=== PATIENT | male | born 1985 | race Caucasian/White ===

== ENCOUNTER → 2020-05-07 11:10 | Outpatient (BNVA) | payer OTHER, SELFPAY | PROVIDERS: Family Provider Family Medicine; PCP Urology; Visit Provider Emergency Medicine | DX: Z20.822 Contact with and (suspected) exposure to COVID-19 (principal) | CPT/HCPCS: 87635 ==

== ENCOUNTER → 2020-09-14 10:08 | Outpatient (BNVA) | payer BC, SELFPAY | PROVIDERS: Family Provider Family Medicine; PCP Urology; Visit Provider Nurse Practitioner Family | DX: Z20.822 Contact with and (suspected) exposure to COVID-19 (principal); J06.9 Acute upper respiratory infection, unspecified; Z11.52 Encounter for screening for COVID-19 | CPT/HCPCS: 87635 ==

== ENCOUNTER 2022-06-09 18:08 | Day surgery (SDC) | payer BC, SELFPAY ==
[2022-06-09] VITALS (12 sets, daily range): BP systolic 112–132; BP diastolic 67–89; PULSE 82–107; RESP 12–18; TEMP 36.1–36.7; O2SAT 94–100
--- NOTE | 2022-06-09 18:25 | XRR_ITS ---
PROCEDURE INFORMATION: Exam: XR Right Hand Exam date and time: 06/09/2022 6:30 PM Age: 37 years old Clinical indication: Injury or trauma; Other: Cut end of middle finger off with saw; Wound; Right; Injury details: Distal part of middle finger cut off with saw TECHNIQUE: Imaging protocol: Radiologic exam of the right hand. Views: 3 or more views. COMPARISON: No relevant prior studies available. FINDINGS: Bones/joints: Amputation changes of the tuft of the distal 3rd phalanx. Soft tissues: Amputation changes of the distal 2nd and 3rd digits. XR/XR hand RT min 3V* [id number] IMPRESSION: Amputation changes of the distal 2nd and 3rd digits which includes amputation of the tuft of the distal 3rd phalanx.
--- NOTE | 2022-06-09 18:37 | W.ED.WOUNDLC ---
HPI - Wound/Laceration General: Chief Complaint: Wound/Laceration Stated Complaint: right hand finger lac Time Seen by Provider: 06/09/22 18:25 Source: patient and family History of Present Illness: 37-year-old male who was running a table saw, and injured his second and third fingers on the right hand about 20 minutes prior to arrival. Distal amputation of the third finger. Laceration with nail loss to the second. He is in quite a bit of pain, and is passing out . Onset (ago): minute(s) Extremity Location: Right: hand Place: home Context: accidental Associated symptoms: Reports nausea, pain and syncope (Near syncope, vasovagal); Denies fever(s) Treatments prior to arrival: other Review of Systems Const: Denies: fever(s) Card: Reports: syncope (Near syncope, vasovagal) GI: Reports: nausea Psych: Reports: anxiety [facility] ED PFSH: Social History Smoking and tobacco status: never smoked Physical Exam Const: GENERAL APPEARANCE: cooperative, anxious and lethargic (Near syncopal) ORIENTATION/CONSCIOUSNESS: Yes lethargic (Near syncopal) HENMT: COMMON NORMALS: normocephalic HEAD & SCALP: normocephalic FACE & SINUS: normal facial exam Eye: COMMON NORMALS: Equal, round and reactive pupils present and EOMs intact bilaterally PUPIL: Yes Equal, round and reactive pupils present Chest: CHEST: Yes Symmetrical chest wall rise Resp: COMMON NORMALS: normal respiratory effort Cardio: COMMON NORMALS: regular rate and regular rhythm RATE: regular rate RHYTHM: regular rhythm Extremity: NARRATIVE EXTREMITY EXAM: Exam of the right hand reveals distal amputation to the third digit with nearly complete nail loss, and some bone loss. There is partial amputation of the distal tip of the second finger with some nail loss. Neuro: JAY JAY COMA SCALE: document GCS findings [place] coma scale eye opening: To sound Jay Jay coma scale verbal response: Orientated Jay Jay coma scale motor response: Obey commands Jay Jay coma scale total score: 14 SENSORIUM/ORIENTATION: Yes lethargic (Near syncopal) Course Vital Signs: Vital signs: Vital Signs Temperature 98.1 F 06/09/22 18:13 Pulse Rate 107 H 06/09/22 18:13 Respiratory Rate 16 06/09/22 19:23 Pulse Oximetry 100 06/09/22 19:23 Oxygen Delivery Me thod 06/09/22 18:13 MDM - Wound/Laceration Medical Decision Making Patient is a bit lethargic on exam, he is presyncopal from vasovagal reaction to his injury. He is given IV fluid, and pain medication with some improvement. The patient is not tolerating the pain related to his injury well at all. He is hyperventilating in the room. He is required 2 doses of pain medication. X-ray reveals bone loss of a portion of the tuft of the third distal phalanx, the second has no bone loss. Spoke with orthopedics. Since the patient is not tolerating the pain related to this well at all, and will likely not tolerate a digital block well without sedation, and because of the contamination risk regarding the surgery, he will go to the OR for washout and/or repair. Orthopedics is at the bedside now. Lab Data 06/09/22 18:39 06/09/22 18:39 Radiology Impressions Hand X-Ray 06/09/22 18:25 IMPRESSION: Amputation changes of the distal 2nd and 3rd digits which includes amputation of the tuft of the distal 3rd phalanx. Laboratory Results WBC 7.0 10^3/uL (4.0-10.0) 06/09/22 18:39 RBC 4.89 10^6/uL (4.1-5.3) 06/09/22 18:39 Hgb 14.8 g/dL (11.7-16.6) 06/09/22 18:39 Hct 43.2 % (42.0-52.0) 06/09/22 18: MCV 88.3 fl (80-94) 06/09/22 18:39 MCH 30.3 pg (28.0-34.0) 06/09/22 18: MCHC 34.3 g/dL (30.0-36.0) 06/09/22 18: RDW 12.1 % (12.1-15.1) 06/09/22 18:39 Plt Count 220 10^3/cmm (130-400) 06/09/22 18:39 MPV 11.6 fL (7.4-10.4) H 06/09/22 18: Neut % (Auto) 55.1 % 06/09/22 18:39 Lymph % (Auto) 33.0 % 06/09/22 18:39 [place] % (Auto) 10.3 % 06/09/22 18:39 Eos % (Auto) 0.7 % 06/09/22 18:39 Baso % (Auto) 0.6 % 06/09/22 18:39 Neut # (Auto) 3.87 10^3/uL (1.8-7.7) 06/09/22 18:39 Lymph # (Auto) 2.3 10^3/uL (0.8-4.8) 06/09/22 18:39 [place] # (Auto) 0.7 10^3/uL (0.2-0.9) 06/09/22 18:39 Eos # (Auto) 0.1 10^3/uL (0.0-0.8) 06/09/22 18:39 Baso # (Auto) 0.0 10^3/uL (0.0-0.1) 06/09/22 18:39 Nucleated RBC % (auto) 0 % 06/09/22 18:39 Nucleated RBCs # 0.0 /100WBC 06/09/22 18:39 Discharge Plan Discharge Patient Disposition: Placed in Observation Clinical Impression: Finger amputation, traumatic Condition: Stable Prescriptions: No Action fexofenadine-pseudoephedrine [Taya-D 12 Hour] 60-120 mg tablet extended release 12 hr 1 tab PO Q12H PRN amoxicillin-pot clavulanate 875-125 mg tablet 1 tab PO BID 5 Days Qty: 10 0RF dextromethorphan-guaifenesin 10-200 mg/5 mL liquid 7.5 ml PO Q8H PRN (Reason: cough) Qty: 118 0RF fluticasone propionate [Flonase Allergy Relief] 50 mcg/actuation spray,suspension 2 spray intranasal DAILY Qty: 16 0RF Rx Instructions: administer into each nostril Referrals: Carlos Macias MD [Primary Care Provider] - Gilberto Ponce DO [Family Provider] - Patient Instructions: Opioid Safety, Pain Management Coding Level of Care Code ED E M Assembl[facility] for [facility] Carmelina
[2022-06-09] MEDS: ondansetron 2 mg/ML SDV 2 mL 4 MG IVP (18:39)
[2022-06-09] MEDS: fentaNYL 50 mcg/mL INJ 2mL 100 MCG IVP (18:39)
[2022-06-09] MEDS: sodium chloride 0.9% 1,000 ML 999 ML IV (18:39)
[2022-06-09] MEDS: HYDROmorphone 1 mg/mL INJ 1 mL IVP ×2 (19:23→20:14)
[2022-06-09] MEDS: ceFAZolin 1,000 MG in sodium chloride 0.9% (plus) 50 ML 100 MG IV (19:37)
[2022-06-09 19:43] LABS: Basophils % 0.6 %; Eosinophils # 0.1 10^3/uL (0.0-0.8); Eosinophils % 0.7 %; Hematocrit 43.2 % (42.0-52.0); Hemoglobin 14.8 g/dL (11.7-16.6); Lymphocytes # 2.3 10^3/uL (0.8-4.8); Mean Corpuscular HGB Conc 34.3 g/dL (30.0-36.0); Mean Corpuscular Hemoglobin 30.3 pg (28.0-34.0); Mean Corpuscular Volume 88.3 fl (80-94); Mean Platelet Volume 11.6 fL (7.4-10.4); Monocytes # 0.7 10^3/uL (0.2-0.9); Monocytes % 10.3 %; Neutrophils # 3.87 10^3/uL (1.8-7.7); Neutrophils % 55.1 %; Nucleated Red Blood Cells % 0 %; Platelet Count 220 10^3/cmm (130-400); Red Blood Count 4.89 10^6/uL (4.1-5.3); Red Cell Distribution Width 12.1 % (12.1-15.1)
--- NOTE | 2022-06-09 19:54 | P.HP_ITS ---
Providers/Chief Complaint Admitting Physician: Reji Shultz DO Primary Care Provider: Carlos Macias MD Chief Complaint: right hand finger lac History of Present Illness Amari Robledo is a 37 year old male who sustained a table saw injury to the right index and right middle finger. Pronounced traumatic distal fingertip amputation through the mid substance of the distal phalanx of the right middle finger as well as the fingertip of the right index finger. Patient in significant pain on unable to tolerate any bedside procedures. Was going to attempt a simple bedside procedure however family as well as patient adamant unable to tolerate this as a result would recommend take back to the OR tonight for right index and right middle finger irrigation and debridement with revision amputation of the right middle finger. Patient's received antibiotics and tetanus in the emergency department. Reports last ate food 4 PM. On my assessment patient just received Dilaudid and is significantly lethargic and out of it for full history however as well as mother is at bedside and shares HPI. At this point time we will plan to proceed with OR this evening. Denies any fevers chills or chest pain does report syncope secondary to vasovagal as well as nausea and anxiety Review of Systems General: Reports: 10 or more systems reviewed and unremarkable except in HPI and below Medications/Allergies Home Medications Medication Instructions Recorded Confirmed Last Taken Type fluticasone propionate 50 2 spray intranasal DAILY #16 grams 02/12/22 02/14/22 Unknown Rx mcg/actuation nasal spray,suspension (Flonase Allergy Relief) amoxicillin 875 mg-potassium 1 tab PO BID 5 days #10 tabs 02/14/22 02/14/22 Unk nown Rx clavulanate 125 mg tablet dextromethorphan-guaifenesin 10 7.5 ml PO Q8H PRN cough #118 mL 02/14/22 02/14/22 Unknown Rx mg-200 mg/5 mL oral liquid fexofenadine 60 mg-pseudoephedrine 1 tab PO Q12H PRN 02/14/22 02/14/22 Unknown History ER 120 mg tablet,ext.release,12 hr (Taya-D 12 Hour) Allergies Allergy/AdvReac Type Severity Reaction Status Date / Time No Known Allergies Allergy Verified 02/14/22 09:18 PFSH Acute PFSH: Social History Smoking and tobacco status: never smoked Vitals/I&O/Wt Last Vital Signs Temp 98.1 F 06/09/22 18:13 Pulse 107 H 06/09/22 18:13 Resp 16 06/09/22 19:23 Pulse Ox 100 06/09/22 19:23 O2 Del Method 06/09/22 18:13 Weight last 48 hrs Weight 230 lb Physical Exam Narrative: Examination of the right hand demonstrate patient is able to flex and extend at the DIP joints of the index and middle finger. Traumatic fingertip amputation mid substance of the distal phalanx of the right middle finger with hematoma clot noted. No active bleeding noted. Exposed bone of the distal phalanx of the right middle finger. Fingertip laceration with no nailbed injury to the right index finger. Sensation intact to light touch distally. Brisk capillary refill less than 2 seconds. Data 06/09/22 18:39 06/09/22 18:39 Xray Ortho: My impression: X-rays of the right hand demonstrate traumatic soft tissue laceration and rotation of the fingertip of the right index finger with does not appear to have any bony involvement with traumatic amputation of the distal phalanx of the right middle finger. Radiologist's impression: XR/XR hand RT min 3V* [id number] IMPRESSION: Amputation changes of the distal 2nd and 3rd digits which includes amputation of the tuft of the distal 3rd phalanx. A&P Assessment and plan (1) Finger amputation, traumatic: Plan Patient presents to the emergency department tonight after tablesaw injury to the right index and middle finger. Patient received appropriate tetanus and antibiotics in the emergency department initial plan was for potential bedside procedure however family adamant and patient unable to tolerate this at bedside and as result through shared decision making with patient and family agreed to proceed with right middle finger irrigation and debridement revision amputation with likely healing by secondary intention as well as I&D of the right index finger. We will take patient to the OR this evening for this and plan would be to discharge from the PACU. Patient family understand agree with current plan. All questions answered. They understand the risk benefits complication alternatives surgical nonsurgical treatment options. Understanding risk of surgery they agreed to proceed. risks with surgery include but not limited to make a better make it worse nail deformity, shortening of finger, infection decreased range of motion. Understands risks good they agreed to proceed with surgical intervention all questions answered. Attestations Medical Necessity Statement*: Traumatic tablesaw injury right index and middle finger Coding Level of Care Code Acute Code for Chg Fwd Diagnoses Finger amputation, traumatic S68.119A Time Spent (min) 45
[2022-06-09 19:58] LABS: Alanine Aminotransferase 44 U/L (0-41); Albumin Level 4.2 g/dL (3.5-5.2); Alkaline Phosphatase 78 U/L (40-130); Anion Gap 16.5 (5-19); Aspartate Amino Transferase 24 U/L (0-40); Blood Urea Nitrogen 13 mg/dL (6-20); Calcium 9.1 mg/dL (8.5-10.5); Carbon Dioxide 23 mmol/L (22-29); Chloride 103 mmol/L (98-107); Globulin 3.1 g/dL (1.3-4.6); Glomerular Filtration Rate 74.9 mL/min (90-130); Glucose 120 mg/dL (65-115); Osmolality Calculated 289 mOsm/kg (285-295); Potassium 3.5 mmol/L (3.5-5.1); Sodium 139 mmol/L (136-145); Total Bilirubin 0.3 mg/dL (0.15-1.2); Total Protein 7.3 g/dL (6.6-8.7)
[2022-06-09] MEDS: tetanus-dipt-pertussis 0.5 mL SDV IM (20:02)
--- NOTE | 2022-06-09 20:40 | ANES.PREANE2 ---
Pre-Anesthetic Assessment Height/Weight: Height 2.01 m Weight 104.326 kg Temp Pulse Resp Pulse Ox O2 Del Method 98.1 F 107 H 18 100 06/09/22 18:13 06/09/22 18:13 06/09/22 20:14 06/09/22 19:23 06/09/22 18:13 Preop Diagnosis: Right index and middle finger traumatic amputation Operation Date: 06/09/22 20:35 Proposed Procedures p Incision & Drainage Finger(Not Applicable) - Reji Shultz DO Familial anesthetic complications: None Last intake: Cheeseburger at approximately 4 pm, will be unable to do MAC or GETA. Patient's family made aware that patient will be awake for procedure Social No alcohol and No tobacco Exam alert, oriented x 3, clear to auscultation bilaterally and regular rate & rhythm Airway Mallampati: Class III Dentition: full Anesthetic Plan ASA status: 1 Other: digital block + IV analgesia Risk of > 500 ml blood loss (7ml/kg in children): No Medications/Allergies Home Medications Medication Instructions Recorded Confirmed Last Taken Type fluticasone propionate 50 2 spray intranasal DAILY #16 grams 02/12/22 02/14/22 Unknown Rx mcg/actuation nasal spray,suspension (Flonase Allergy Relief) amoxicillin 875 mg-potassium 1 tab PO BID 5 days #10 tabs 02/14/22 02/14/22 Unknown Rx clavulanate 125 mg tablet dextromethorphan-guaifenesin 10 7.5 ml PO Q8H PRN cough #118 mL 02/14/22 02/14/22 Unknown Rx mg-200 mg/5 mL oral liquid fexofenadine 60 mg-pseudoephedrine 1 tab PO Q12H PRN 02/14/22 02/14/22 Unknown History ER 120 mg tablet,ext.release,12 hr (Taya-D 12 Hour) Allergies Allergy/AdvReac Type Severity Reaction Status Date / Time No Known Allergies Allergy Verified 02/14/22 09:18 COUNTS INCLUDE 234 BEDS AT THE [facility] Anesthesia Social History Smoking and tobacco status: never smoked Data Anesthesia 06/09/22 18:39 06/09/22 18:39 Short CBC 06/09/22 Range/Units 18:39 WBC 7.0 (4.0-10.0) 10^3/uL Hgb 14.8 (11.7-16.6) g/dL Hct 43.2 (42.0-52.0) % MCV 88.3 (80-94) fl Plt Count 220 (130-400) 10^3/cmm Neut % (Auto) 55.1 % Neut # (Auto) 3.87 (1.8-7.7) 10^3/uL BMP 06/09/22 18:39 Sodium 139 Potassium 3.5 Chloride 103 Carbon Dioxide 23 BUN 13 Creatinine 1.1 Glucose 120 H Calcium 9.1 Liver Function 06/09/22 Range/Units 18:39 Total Bilirubin 0.3 (0.15-1.2) mg/dL AST 24 (0-40) U/L ALT 44 H (0-41) U/L Alkaline Phosphatase 78 (40-130) U/L Albumin 4.2 (3.5-5.2) g/dL Cardiac Studies: No Data to Display
[2022-06-09] MEDS: ceFAZolin 1,000 mg SDV 1000 MG IVP (21:12)
[2022-06-09] MEDS: lidocaine 1% INJ 10 mL (per mL) 24 ML INJECTION (21:15)
[2022-06-09] MEDS: neomycin-poly-bacitracin oint 28 gm 1 APPLIC TOPICAL (21:55)
--- NOTE | 2022-06-09 22:06 | PM.OP2 ---
Brief Operative Note Date of procedure: 06/09/22 Pre-op diagnosis: Right index finger laceration, right middle finger traumatic amputation (ta Post-op diagnosis: same (Right index finger nailbed laceration, right middle finger traumatic amputation) Procedure Done: Right index finger irrigation and debridement skin and subcutaneous tissue Right index finger nail plate removal and nailbed repair Right middle finger irrigation and debridement skin, subcutaneous tissue and bone Right middle finger nail plate removal and nailbed repair Right middle finger revision amputation with healing by secondary intention Surgeon: Reji Shultz Estimated blood loss (mL): 5 Complications: None Post-op Plan: Patient taken to PACU in stable condition recovering well. Pain controlled. Will receive appropriate discharge instructions as well as pain medication and post surgical antibiotics for infection prophylaxis. Patient will follow-up with me in the office in 2 weeks. Any questions or concerns and contact the office. Condition: stable Disposition: other (Discharge home) Coding Level of Care Code Acute Code for Ria Fwabby
--- NOTE | 2022-06-09 22:07 | P.PCN_ITS ---
PACU note Narrative: Patient taken to PACU in stable condition recovering well pain controlled. Dressings on in place clean dry and intact. Prior to dressing application fingertips are warm well-perfused brisk capillary refill less than 2 seconds. Decreased sensation to the index and middle finger secondary to digita l block. Exam: awake Disposition: discharged
--- NOTE | 2022-06-09 22:07 | P.OP_ITS ---
Operative Report Date of procedure: June 09, 2022 Pre-op diagnosis: Preop Diagnosis Right index and middle finger traumatic amputation Post-op diagnosis: Right index finger laceration, right middle finger traumatic amputation Procedure done: Right index finger irrigation and debridement skin and subcutaneous tissue Right index finger nail plate removal and nailbed repair Right middle finger irrigation and debridement skin, subcutaneous tissue and bone Right middle finger nail plate removal and nailbed repair Right middle finger revision amputation with healing by secondary intention Surgeon: Reji Shultz, DO Estimated blood loss: 5 mL Right middle finger turnicot?27 minutes Right index finger turnicot 14 minutes IV fluids: 700 mL Complications: None Findings: See operative report narrative Brief History: Patient is a 37-year-old male who presented the emergency department after tablesaw injury to the right index and middle finger found to have a laceration of the fingertip with possible nailbed injury as well as traumatic amputation of the right middle finger through the distal phalanx. Was seen evaluated the emergency department we talked about treatment options far as nonoperative and operative intervention ultimately this point time given open injury as well as inability to tolerate bedside would recommend formal OR for right index finger irrigation and debridement, right middle finger irrigation debridement and revision amputation. Patient family understand agree with current plan. All questions answered. We detailed out the risk benefits complications alternatives with the procedure understanding risk of surgery and agreed to proceed. All questions answered. Procedure: Patient presented to the preoperative area consent was reviewed and signed with patient. Correct extremity/digits were then marked. Patient seen evaluated by anesthesia plan was for local anesthetic with supplement of pain medication and anesthetic monitoring as patient did have a meal at 4 PM and anesthesia expressed concerns for possible aspiration of performed general anesthetic. Once cleared for surgery patient was taken back to the operative suite. Patient was then transported on the OR table all bony prominences well-padded patient properly secured to bed. Armboard was applied to the right arm. Patient then received appropriate pain medication prior to local anesthetic. Under sterile aseptic technique digital block was performed of the right index and middle finger. Patient tolerated this without any issues. Once appropriately anesthe tized the right hand was then prepped and draped in standard orthopedic fashion utilizing Betadine scrub brush. This point time patient received appropriate preoperative antibiotics. Final timeout performed. Attention was first turned towards the right middle finger a turnicot was then placed to the right middle finger. Then under loupe magnification thoroughly inspected the right middle finger. Patient was found to have traumatic amputation through the distal phalanx as well as violation and complete removal of 60 to 75% of the nail plate. This point time I thoroughly inspected the woun d bed and this was debrided to its entirety of skin and subcutaneous tissue and bone. I then utilized a rongeur to perform a revision amputation to take the bone underneath the soft tissue envelope to allow for secondary intention healing. This point time the digital vascular bundles were identified and then coagulated with electrocautery. Next I made small incisions in the eponychial fold and inspected the residual nail sterile matrix and germinal matrix the germinal matrix was intact however there was 2 lacerations into the residual sterile matrix. I then utilized 5-0 chromic suture and performed a nailbed repair. Next I placed a finger turnicot to the right index finger and then subsequently performed a right index finger irrigation and debridement. Debridement of skin and subcutaneous tissue was performed. Patient laceration did extend into the nail plate. In order for thorough evaluation of the nailbed I then subsequently placed a [place] and performed a nail plate removal. I was then able to inspect the nailbed to its entirety no damage to the nail matrix was noted however there was laceration into the sterile matrix and I subsequently used a 5-0 chromic suture in standard interrupted fashion and performed a nailbed repair to the index finger. This subsequently completed work on both the fingers I then utilized cystoscopy tubing and 3 L of normal saline to thoroughly irrigate the index and middle finger. I then subsequently removed the tourniquets to the right middle finger and right index finger. Hemostasis was satisfactory. The wound beds were then dressed with triple antibiotic bacitracin ointment as well as Xeroform was placed underneath the eponychial fold to prevent scarring for both the index and middle finger. I then covered the fingertips with 4 x 4's and Polo wrap. Curlex and Bill wrap were then applied. Patient tolerated procedure without any complications. Patient was taken back to PACU in stable condition. Disposition: Patient taken PACU in stable condition recovering well pain controlled. Dressing on in place clean dry and intact receive appropriate discharge instruction as well as pain medication postoperatively as well as p.o. antibiotics outpatient for infection prophylaxis. Patient will follow-up with me in the office in 2 weeks. Patient family understand agree with current plan. All questions answered.
[2022-06-09] MEDS: HYDROcodone-acetaminophen 5-325 mg Tablet 2 TAB PO (22:45)
--- NOTE | 2022-06-09 22:58 | SUR.PHASEII ---
Per Dr Engel discharge instructions, pt was given 2 Hydrocodone upon discharge for pain and 2 hydrocodone were sent home with pt as pharmacy will not open until tomorrow AM. Pt was instructed to not take medications on an empty stomach as could cause nausea and vomiting. Pt and both state understanding of all discharge instructions.
== END 2022-06-09 20:36 | disposition home or self-care (01) ==
LOC: ER 19:54 → OR 20:36
PROVIDERS: Emergency Provider Emergency Medicine; Family Provider Family Medicine; PCP Urology; Visit Provider Student in an Organized Health Care Education/Training Program
PROC: (CPT 11042; principal; 2022-06-09 20:35)
DX: S61.310A Laceration without foreign body of right index finger with damage to nail, initial encounter (principal); S68.122A Partial traumatic metacarpophalangeal amputation of right middle finger, initial encounter; W27.0XXA Contact with workbench tool, initial encounter; Z23 Encounter for immunization
CPT/HCPCS: 11042; 11044; 11750 ×2; 26236; 73130; 80053; 85025; 90471; 90715; J0690; J1170; J2405; J2704; J3010; J3490; J7030

== ENCOUNTER → 2023-04-16 13:22 | Outpatient (BNVA) | payer BC, SELFPAY | PROVIDERS: Family Provider Family Medicine; PCP Urology; Visit Provider Family Medicine | DX: Z13.6 Encounter for screening for cardiovascular disorders (principal); R00.2 Palpitations; E03.9 Hypothyroidism, unspecified | CPT/HCPCS: 80053; 80061; 84439; 84443; 85025 ==